=== PATIENT | female | born 1985 | race Caucasian/White ===

== ENCOUNTER 2017-05-27 18:33 | Inpatient (IN) | payer BC, OTHER ==
[~2017-05-27] VITALS: Ht 157.5 cm; Wt 47.2 kg
[2017-05-27] MEDS ORDERED: ONDANSETRON ODT 4 MG TAB.RAPDIS SL PRN (21:00)
[2017-05-27] MEDS ORDERED: DICYCLOMINE HCL 20 MG TABLET PO PRN (21:00)
[2017-05-27] MEDS ORDERED: MAG HYDROX/AL HYDROX/SIMETH 30 ML LIQUID UDC PO PRN (21:00)
[2017-05-27] MEDS ORDERED: ONDANSETRON 4 MG/2 ML VIAL IM PRN (21:00)
[2017-05-27] MEDS ORDERED: MIRALAX 17 GM POWD.PACK PO PRN (21:00)
[2017-05-27] MEDS ORDERED: CLONIDINE HCL 0.1 MG TABLET PO PRN (21:00)
[2017-05-27] MEDS ORDERED: LOPERAMIDE HCL 2 MG CAPSULE PO PRN ×2 (21:00)
[2017-05-27] MEDS ORDERED: LORAZEPAM 1 MG TABLET PO PRN (21:00)
[2017-05-27] MEDS ORDERED: MAGNESIUM HYDROXIDE 30 ML LIQUID UDC PO PRN (21:00)
[2017-05-27] MEDS ORDERED: LORAZEPAM 2 MG/1 ML VIAL IM PRN (21:00)
[2017-05-27] MEDS ORDERED: THIAMINE HCL 200 MG/2 ML VIAL IM ONE (21:00)
[2017-05-27 21:50] VITALS: BP 116/81
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
[2017-05-27 22:15] LABS: *URINE HCG, QUAL NEGATIVE
[2017-05-27 22:19] LABS: BASOPHILS # (AUTO) 0.1 K/uL (0.0-8.0); BASOPHILS % (AUTO) 1.3 % (0.0-2.0); EOSINOPHILS # (AUTO) 0.1 K/uL (0.0-0.7); EOSINOPHILS % (AUTO) 0.9 % (0.0-7.0); HEMATOCRIT 39.9 % (36.7-47.1); HEMOGLOBIN 13.7 g/dL (12.5-16.3); LYMPHOCYTES % (AUTO) 35.5 % (20.5-51.5); MEAN CORPUSCULAR HEMOGLOBIN 32.9 uug (23.8-33.4); MEAN CORPUSCULAR HGB CONC 34 g/dL (32.5-36.3); MEAN CORPUSCULAR VOLUME 95.4 fL (73.0-96.2); MONOCYTES # (AUTO) 0.4 K/uL (2.0-10.0); MONOCYTES % (AUTO) 6.7 % (0.0-11.0); NEUTROPHILS # (AUTO) 3.2 K/uL (1.8-8.9); NEUTROPHILS % (AUTO) 55.6 % (38.5-71.5); PLATELET COUNT (AUTO) 162 K/uL (152-348); RED BLOOD CELL COUNT(AUTO) 4.18 MIL/uL (4.06-5.63); WHITE BLOOD COUNT (AUTO) 5.7 K/uL (3.6-10.2)
--- NOTE | 2017-05-27 22:22 | NUR ---
Admission Note Pt is 31 y/o female being admitted for medically supervised withdrawal from ETOH (Vodka/White Wine). The pt is intoxicated, noted to be anxious but cooperative , flight of ideas, able to be refocused with multiple attempts, CIWA noted to be 9. Pt states substance use as: 1. Vodka: first start approx 4 years ago but recently relapsing for 1 week, using 375 ml/day, last drink reported 1pm on the day of admission 2. White Wine: first started approx 4 year but recently relapsing for 1 week, drinking 2-3 5oz glasses/day when Vodka not available during the last week. 3. Tobacco: Unknown quantity/dependence Past attempts at sobriety include a 1 day admit into [facility] in [place], Mar 2017, with 1.5 yrs sobriety before that, and almost 2 months after, relapsing only for the past week. 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 She denies any symptoms regarding withdrawing from ETOH, but states she almost went into [facility] before and "how scared she is to do that". Allergies listed as "life threatening" requiring epi-pen and hospitalization include "raw tomatoes, pecans and walnuts" which lead to anaphylactic shock. Codeine causes nausea and vomiting. Pt weighed in at 104 lbs, height 64", VS's 100/60, P 110, R 16, SaO2 100% on RA. CIWA 9 and Pt medicated with Ativan 1mg PO, Toradol 30mg IM, 40 meq KCL PO. Assessment done, and orientation to unit completed with refreshments retrieved from kitchen. Dr's listed include a Dr Horn, who seems to have seen her in , and prescribed her Neurontin for anxiety. A Dr Waggoner who was seen in 2016 for endometriosis and IVF, Dr Jose Gomez who was seen in 2014 for polycystic ovarian cyst, and Dr Chang who was seen in 2014 for Spina Bifada. Home medications noted as Neurontin 300mg for anxiety and Seroquel 50mg for sleep. Will monitor PRN's and one time doses, reassessing detox q4hrs and as needed.
[2017-05-27 22:27] LABS: *AMPHETAMINE, URINE NEGATIVE (NEGATIVE); *BARBITURATE, URINE NEGATIVE (NEGATIVE); *CANNABINOID, URINE NEGATIVE (NEGATIVE); *COCCAINE, URINE NEGATIVE (NEGATIVE); *OPIATE, URINE NEGATIVE (NEGATIVE); *PHENCYCLIDINE SCREEN,URINE NEGATIVE (NEGATIVE)
[2017-05-27 22:37] LABS: ALANINE AMINOTRANSFERASE 60 U/L (16-63); ALKALINE PHOSPHATASE 183 U/L (50-136); AMYLASE 73 U/L (25-115); ASPARTATE AMINOTRANSFERASE 203 U/L (15-37); BILIRUBIN,TOTAL 0.6 mg/dL (0.2-1.0); CARBON DIOXIDE 29 mmol/L (21-32); CHLORIDE 101 mmol/L (98-107); CREATININE 0.7 mg/dL (0.6-1.3); GLUCOSE 96 mg/dL (74-106); MAGNESIUM 1.9 mg/dL (1.8-2.4); POTASSIUM 3.4 mmol/L (3.5-5.1); TOTAL PROTEIN, SERUM 8.4 g/dL (6.4-8.2); UREA NITROGEN, BLOOD 8 mg/dL (7-18)
[2017-05-27 22:39] LABS: ETHANOL 320 MG/DL (0-0)
[2017-05-27] MEDS ORDERED: POTASSIUM CHLORIDE 20 MEQ TAB.PRT.SR PO ONE (23:00)
[2017-05-27] MEDS: LORAZEPAM 1 MG TABLET PO PRN (23:05)
--- NOTE | 2017-05-27 23:05 | NUR ---
PRN/One Time Dosees Ativan 1mg, PO for CIWA 9 given for anxiety described by pt as 6/10 and ETOH withdrawal, will reasses in 1 hr.
[2017-05-27 23:35] VITALS: BP 109/72
[2017-05-28] VITALS (7 sets, daily range): BP systolic 92–109; BP diastolic 54–77
--- NOTE | 2017-05-28 00:05 | NUR ---
PRN Reassessment Pt reports decreased anxiety, describes anxiety as 3/10.
[2017-05-28] MEDS ORDERED: KETOROLAC TROMETHAMINE 30 MG INJ IM ONE (00:30)
--- NOTE | 2017-05-28 00:37 | NUR ---
PRN/One Time Dosees Toradol 30mg IM given R Deltoid for R lower leg pain, described as" burning, throbbing, stabbing, shooting, sharp", pain 10/21
[2017-05-28] MEDS ORDERED: GABA-534 PO ×3 (00:38→14:28)
[2017-05-28] MEDS ORDERED: QUET25TA PO (00:38)
[2017-05-28] MEDS ORDERED: EPIN0.3A3 IM (01:32)
--- NOTE | 2017-05-28 01:37 | NUR ---
One Time Dose Reassessment Pt sleeping but awakens to voice. Pt reports Toradol "did no good at all".
--- NOTE | 2017-05-28 03:50 | NUR ---
PRN Medication Administration Patient is noted awake and verbalizing increased anxiety, noted to be restless, agitated, face noted to be flushed, and tremulous. CIWA noted to be 15. PRN Ativan 2mg administered. Will continue to monitor.
--- NOTE | 2017-05-28 04:40 | NUR ---
PRN Medication Reassessment patient is noted awake and is able to verbalize PRN Ativan was effective in minimizing withdrawal symptoms. Patient still noted to to be flushed. Patient states "My anxiety level is better. The medication really helped." encouraged patient to drink fluids as tolerated. Patient verbalized understanding. PRN Ativan 2mg noted to be effective. CIWA score noted to be 9. Will continue to monitor.
[2017-05-28] MEDS: IBUPROFEN 400 MG TABLET PO PRN ×3 (05:15→22:02)
--- NOTE | 2017-05-28 05:15 | NUR ---
PRN PAIN MED Pt found sitting up in bed holding, guarding R lower leg, tearful, flushed, withdrawn, reports R lower leg pain as 8/10, described as "burning, sharp, shooting" and says "It feels like my leg is on fire". plastics plater called to room to assess pt. Pt says the 0037 IM dose of Toradol effective "for a little while, It allowed me to get some sleep". Pt agrees to try Motrin 400mg PO. Medication administered, will continue to monitor and reassess
--- NOTE | 2017-05-28 06:15 | NUR ---
PRN Med reassessment 1 hour Motrin 400mg reassessment. Pt found sleeping on R side, no s/s's restlessness, no facial grimacing. RR 16, non labored and even. Med effective
--- NOTE | 2017-05-28 07:28 | NUR ---
End of Shift 31 y/o female new admit for ETOH withdrawal (Vodka and white wine). Pt noted to be intoxicated on arrival, with c/o R lower leg pain, anxiety, and ETOH intake of 375 ml/day x 1 week. Admitted to unit at 2222, medicated with 1 mg Ativan PO (one time dose), KCL 40 meq PO (replacement for K 3.4), Toradol 30mg IM(one time dose) for R lower leg pain 8/10, Ativan 2 mg PO at 0345 for CIWA 15, Motrin 400 mg PO at 0515 for R lower leg pain 8/10. At present pt sleeping, respirations 16. Pt encouraged to hydrate as tolerated. Intake of 1355, 2 voids, last BM 05/17/17. Will monitor and promptly treat all needs, endorse to continue plan of care as ordered.
--- NOTE | 2017-05-28 07:30 | NUR ---
START OF SHIFT Pt is a 31 yr old female, AA&Ox x4. Pt was admitted on 05/27/17 fro ETOH withdrawal and is on Ativan PRN for s/s of w/d. Received report from night shfit nurse. Pt received Ativan 2mg one time order and Toradol 30mg IM one time order during the night. Medication was mildly effective. Pt received Ativan 2mg PRN and Motrin 400mg PO PRN in the morning. Medication was effective. Pt slept for 2 hrs. intermittently. Pt is currently c/o right leg pain 09/20. Pt states of having anxiety but is able to cope with anxiety level. Pt states, "I just want to sleep". Skin is intact, warm and moist to touch. Fine tremors are felt on bilateral hands. Pt is on fall and seizure precautions. Pt was encouraged increase fluid intake. Call light is within reach. Will continue to monitor.
--- NOTE | 2017-05-28 08:45 | NUR ---
REFUSED TB Pt refused TB. Pt denies any episodes of cough or congestion. Pt states she has a false positive skin test and just recently had a chest x-ray that was cleared. Will continue to f/u with . Addendum: 05/28/17 at 1059 by TYRONE MUÑOZ LVN made aware
[2017-05-28] MEDS ORDERED: TUBERCULIN,PURIF.PROT.DERIV. 5 TU/0.1 ML TEST ID ONE ×2 (09:00)
[2017-05-28] MEDS: ACETAMINOPHEN 325 MG TABLET PO PRN ×2 (09:09→18:50)
--- NOTE | 2017-05-28 09:09 | NUR ---
PRN GIVEN Pt c/o right leg pain 09/20. Tylenol 650mg PO PRN was given as ordered. Encouraged increase fluid intake. Will continue to monitor.
[2017-05-28] MEDS: THIAMINE HCL 100 MG TABLET PO SCH (09:10)
[2017-05-28] MEDS: FOLIC ACID 1 MG TABLET PO SCH (09:10)
[2017-05-28] MEDS: MULTIVITAMINS,THERAPEUTIC TABLET PO SCH (09:10)
[2017-05-28] MEDS: LORAZEPAM 1 MG TABLET PO PRN (09:31)
--- NOTE | 2017-05-28 09:31 | NUR ---
PRN GIVEN Pt c/o increase anxiety. Fine tremors were seen on bilateral hands. Pt states of having pins and needle sensation on RLE. CIWA score was 10. Ativan 1mg PO PRN was given as ordered. Will continue to monitor.
--- NOTE | 2017-05-28 10:31 | NUR ---
PRN RE-ASSESSMENT Ativan 1mg PO PRN was effective, CIWA score went from 10 to 6 after medication administration. Tylenol PRN was mildly effective. Pt continue to c/o right leg pain 08/21. MD is made aware. Will continue to monitor.
[2017-05-28] MEDS: KETOROLAC TROMETHAMINE 30 MG INJ IM PRN (12:17)
--- NOTE | 2017-05-28 12:18 | NUR ---
PRN GIVEN Pt c/o sever pain on right lower leg 10/10. Facial grimacing and moaning is noted. Toradol 30mg IM PRN was given as ordered. Encouraged increase fluid intake. Will continue to monitor.
--- NOTE | 2017-05-28 13:18 | NUR ---
PRN RE-ASSESSMENT Toradol PRN was effective. Pt states pain level subsided to 5/10. Pt was encouraged increase fluid intake. Will continue to monitor.
[2017-05-28] MEDS: GABAPENTIN 300 MG CAPSULE PO SCH ×2 (14:23→22:02)
[2017-05-28] MEDS ORDERED: DIPH50CA37 PO (14:28)
[2017-05-28] MEDS ORDERED: IBUP-1953 PO (14:28)
[2017-05-28] MEDS ORDERED: HYDR-3026 PO (14:28)
[2017-05-28] MEDS ORDERED: LORAZEPAM 1 MG TABLET PO SCH ×2 (15:00→21:00)
[2017-05-28] MEDS ORDERED: GABAPENTIN 300 MG CAPSULE PO SCH (15:00)
--- NOTE | 2017-05-28 17:00 | NUR ---
PRN GIVEN pt c/o severe pain on right leg 10/10. Facial grimacing is observed. Motrin 400mg PO PRN was given as ordered. Encouraged increase fluid intake. Will continue to monitor.
--- NOTE | 2017-05-28 18:00 | NUR ---
PRN RE-ASSESSMENT Motrin PRN was mildly effective. Pt continues to c/o severe pain 09/20. Pt was encouraged increase fluid intake. Will continue to monitor.
--- NOTE | 2017-05-28 19:16 | NUR ---
END OF SHIFT Pt is a 31 yr old female, AA&Ox4. Pt was admitted on 05/27/17 for ETOH withdrawal and is on a modified 2 day Ativan taper as ordered. Medication amaris well. Pt c/o anxiety and severe leg pain throughout the day. Pt received Ativan 1mg PO PRN at 0931 and Tylenol 650mg PO PRN at 0909. Pt also received Toradol 30mg IM PRN at 1217 and Motrin 400mg PO at 1659 and Tylenol 650mg PO PRN at 1851. Pt continues to c/o right leg pain, stating its burning and throbbing. Facial grimacing is observed. Endorsed to mold shifter nurse to continue to monitor. Last CIWA score was 9 at 1600. Pt was encouraged increase fluid intake. Safety precautions observed. Call light is within reach.
--- NOTE | 2017-05-28 19:30 | NUR ---
START OF SHIFT NOTE : Patient is a 31-year-old female admitted on 05/27/17 for medically supervised withdrawal from ETOH. Pt. placed on 2 day Ativan taper. PRN MOTRIN, TYLENOL, TORADOL given during day shift. Pt. is resting in room, watching TV, tearful, restless time to time, last CIWA=9. She complains of tremor time to time, difficulty falling and staying asleep, increased level of anxiety, flashes time to time, pain in her right leg. Educated patient regarding the importance of compliance to treatment and medication regime, patient verbalized understanding. Encouraged patient to participate in group therapies and verbalize feelings. Safety measures in place : bed on lowest position with side rails x2 up for safety, all light within reach. Will continue to monitor closely and offer help.
--- NOTE | 2017-05-28 21:00 | NUR ---
PRN BENADRYL, MOTRIN Pt. complains of difficulty falling asleep, insomnia, headache and pain in the right leg 09/20. PRN BENADRYL, MOTRIN given as ordered. Safety measures in place : bed on lowest position with side rails x2 up for safety, call light within reach. Will continue to monitor closely and offer help.
--- NOTE | 2017-05-28 22:00 | NUR ---
RE-ASSESSMENT LYUDMILA MICHAEL Pt. is sleeping, RR=16, unlabored and even . Safety measures in place : bed on lowest position with side rails x2 up for safety, call light within reach. Will continue to monitor closely and offer help.
[2017-05-28] MEDS: diphenhydrAMINE 50 MG CAPSULE PO PRN (22:02)
--- NOTE | 2017-05-29 06:33 | NUR ---
END OF SHIFT NOTE : Patient is a 31-year-old female admitted on 05/27/17 for medically supervised withdrawal from ETOH. Pt. placed on 2 day Ativan taper. PRNs given during caustic cresylate shift superintendent : BENADRYL, MOTRIN. CIWA, taken when pt. was awake, last CIWA=8, at 04:00. Intake=1,680 , voided x3, slept=8 hours. Safety measures in place : bed on lowest position with side rails x2 up for safety, all light within reach. Will continue to monitor closely and offer help.
--- NOTE | 2017-05-29 07:51 | NUR ---
Start of Shift Notes: Received endorsement from night nurse. Patient is a 31 year old female admitted for ETOH withdrawal. Placed on a 2-day Ativan taper as ordered. No adverse reactions noted. Patient is seen in her room. Laying in bed with eyes closed. Breathing even and unlabored. No SOB noted. Patient is easily arousable. Goes back to sleep immediately. Room appears unkept with dirty linen on the floor. Will encouraged maintenance of personal hygiene and space. PRN Benadryl and Motrin given during the night. Last CIWA 8. Slept for 8 hours. All needs met and attended. Will continue to monitor closely.
[2017-05-29 08:00] VITALS: BP 98/65
[2017-05-29] MEDS: GABAPENTIN 300 MG CAPSULE PO SCH ×3 (08:39→20:45)
[2017-05-29] MEDS: THIAMINE HCL 100 MG TABLET PO SCH (08:39)
[2017-05-29] MEDS: MULTIVITAMINS,THERAPEUTIC TABLET PO SCH (08:39)
[2017-05-29] MEDS: FOLIC ACID 1 MG TABLET PO SCH (08:39)
[2017-05-29] MEDS: KETOROLAC TROMETHAMINE 30 MG INJ IM PRN ×2 (08:39→17:51)
--- NOTE | 2017-05-29 08:39 | NUR ---
Toradol 30 mg IM given: Patient complained of 8/10 right leg pain related to nerve damage. Non-pharmacological interventions provided but in effective. Medicated patient with Toradol 30 mg IM as ordered. Will monitor for effectiveness.
--- NOTE | 2017-05-29 08:39 | NUR ---
Toradol 30 mg IM given: Patient complained of "12/21" back pain r/t chronic back pain. Non-pharmacological interventions provided but ineffective. Medicated patient with Toradol 30 mg IM as ordered. Will monitor for effectiveness. Addendum: 05/29/17 at 0855 by ZACHARIAH STOVER LVN Error in charting.
[2017-05-29] MEDS ORDERED: LORAZEPAM 1 MG TABLET PO SCH (09:00)
--- NOTE | 2017-05-29 09:09 | NUR ---
Re-assessment: Toradol Patient verbalizes that PRN Toradol was mildly effective in reducing pain. She states that PL is now 4/10 from 10/21.
[2017-05-29] MEDS ORDERED: TRAZODONE 50 MG TABLET PO PRN (10:00)
[2017-05-29 10:08] LABS: HEPATITIS B SURFACE AG Negative (Negative)
[2017-05-29] MEDS: ACETAMINOPHEN 325 MG TABLET PO PRN ×2 (10:27→20:45)
--- NOTE | 2017-05-29 10:27 | NUR ---
Tylenol 650 mg PO given: Patient complains of 5/10 pain to her right leg due to neuropathy. Non-pharmacological interventions provided but ineffective. Medicated patient with Tylenol 650 mg PO as ordered. Will monitor for effectiveness.
--- NOTE | 2017-05-29 10:57 | NUR ---
MD Communication: Patient complains of mild to moderate anxiety. Non-pharmacological interventions provided. Patient requested for her comfort blanket and stuffed toy to alleviate his anxiety. Communicated with administration.
--- NOTE | 2017-05-29 11:27 | NUR ---
Re-assessment: Tylenol Per patient, PRN Tylenol was effective in reducing right leg pain. PL is now 04/23.
[2017-05-29] MEDS ORDERED: HYDROXYZINE PAMOATE 25 MG CAPSULE PO PRN (11:30)
--- NOTE | 2017-05-29 11:54 | NUR ---
New Orders: [place] Obtained orders from for patient to receive Vistaril 25 mg PO Q6 hours PRN for anxiety. Orders noted. Patient education provided.
[2017-05-29 12:00] VITALS: BP 107/65
--- NOTE | 2017-05-29 14:18 | NUR ---
Vistaril 25 mg PO given: Patient verbalizes mild to moderate anxiety due to change in environment. Encouraged patient to verbalize her feelings and concerns. Encouraged to attend group but did not help. Medicated patient with Vistaril 25 mg PO as ordered. Will monitor for effectiveness.
--- NOTE | 2017-05-29 15:18 | NUR ---
Re-assessment: Vistaril Per patient, PRN Vistaril was effective in reducing patient's anxiety. She verbalizes "I'm more at ease now, thank you! But, my anxiety is still there."
[2017-05-29 16:00] VITALS: BP 94/54
--- NOTE | 2017-05-29 16:21 | NUR ---
Re-assessment: Toradol Patient verbalizes that PRN Toradol was effective in reducing right leg pain. PL is now 05/21.
--- NOTE | 2017-05-29 17:51 | NUR ---
Toradol 30 mg IM given: Patient complained of 9/10 right leg pain related to neuropathy. Non-pharmacological interventions provided but ineffective. Medicated patient with Toradol 30 mg IM as ordered. Will monitor for effectiveness.
--- NOTE | 2017-05-29 19:06 | NUR ---
End of Shift Notes: Patient completed her 2-day Ativan taper as ordered. No adverse reactions noted. VS monitored closely. No significant abnormalities noted. Withdrawal symptoms were closely monitored. Initial CIWA 14, patient presented with anxiety, agitation, gross tremors, and peripheral numbness/tingling/pain. Medicated patient with Toradol 30 mg IM as ordered at 0839 for right leg pain related to neuropathy with help after 30 minutes. At 1027, patient was given Tylenol 650 mg PO for right leg pain with help after 1 hour. New order for Vistaril 25 mg PO q 6 hours PRN for anxiety. Vistaril 25 mg PO given at 1404 with help after 1 hour. Patient was again medicated with Toradol 30 mg IM at 1751 for right leg pain with help after 30 minutes. Last CIWA 10. Requires encouragement to attend group and activities. Tends to self isolate. Prefers to stay in her room and in bed watching TV. Appears worried and sad. Encouraged to verbalize her feelings and concerns. All needs met and attended. Will continue to monitor closely.
--- NOTE | 2017-05-29 19:30 | NUR ---
START OF SHIFT Pt is a 31 y/o female admitted on 05/27/17 for ETOH withdrawal. Pt finished a 2 day Ativan taper and is scheduled to be d/c tomorrow. Per day shift nurse, last CIWA 10 and PRN Toradol x 2, Tylenol and Vistaril administered. Upon assessment pt presents with anxiety, pain in right leg and lower back 9/10, unkempt room, difficulty falling asleep, tachycardia, numbness and tingling in right leg, restlessness, chills and is withdrawn. Medications due. Safety measures in place. Call light within reach. Will continue to monitor.
[2017-05-29 20:00] VITALS: BP 115/81
[2017-05-29] MEDS: IBUPROFEN 400 MG TABLET PO PRN (20:45)
[2017-05-29] MEDS: diphenhydrAMINE 50 MG CAPSULE PO PRN (20:45)
--- NOTE | 2017-05-29 20:45 | NUR ---
PRN TYLENOL, BENADRYL AND MOTRIN ADMINISTRATION Pt reports pain 9/10 in right leg and lower back. Pt appears uncomfortable and presents with facial grimacing. Pt requests sleep aid for difficulty falling asleep. Safety measures in place. Call light within reach. Will continue to monitor.
--- NOTE | 2017-05-29 21:45 | NUR ---
PRN TYLENOL, BENADRYL AND MOTRIN REASSESSMENT Pt reports pain in lower back is tolerable, but states "The pain in right leg only lowered to maybe a 8/10." Pt remains awake at this time. Pt requesting further sleep aid. Safety measures in place. Call light within reach. Will continue to monitor.
--- NOTE | 2017-05-29 22:20 | NUR ---
PRN TRAZODONE ADMINISTRATION Pt presents with restlessness and is still awake, pt requests sleep aid. Safety measures in place. Call light within reach. Will continue to monitor.
--- NOTE | 2017-05-29 23:20 | NUR ---
PRN TRAZODONE REASSESSMENT Pt laying in bed with eyes closed, medication noted effective. Safety measures in place. Call light within reach. Will continue to monitor.
--- NOTE | 2017-05-30 | NUR ---
CIWA DEFERRED AND VITALS REFUSED Pt laying in bed with eyes closed, CIWA deferred, to be assessed when pt is awake per orders. Vitals refused. Respirations even and unlabored. Safety measures in place. Call light within reach. Will continue to monitor.
[2017-05-30] MEDS: KETOROLAC TROMETHAMINE 30 MG INJ IM PRN (03:00)
--- NOTE | 2017-05-30 03:00 | NUR ---
PRN TORADOL INJ ADMINISTRATION Pt woke up from being in pain, reports right leg pain 8/10. Pt appears uncomfortable, is guarding and presents with facial grimacing. Safety measures in place. Call light within reach. Will continue to monitor.
--- NOTE | 2017-05-30 03:30 | NUR ---
PRN TORADOL REASSESSMENT Pt laying in bed with eyes closed, medication noted effective. Safety measures in place. Call light within reach. Will continue to monitor.
--- NOTE | 2017-05-30 07:26 | NUR ---
END OF SHIFT Pt is a 31 y/o female admitted on 05/27/17 for ETOH withdrawal. Pt finished a 2 day Ativan taper and is scheduled to be d/c today. Pt presented with anxiety, pain in right leg and lower back 11/21, unkempt room, difficulty falling and staying asleep, tachycardia, numbness and tingling in right leg, restlessness, chills and is withdrawn. Scheduled medications and PRN Tylenol, Benadryl, Motrin, Trazodone and Toradol administered, effective in S/S of withdrawal as verbalized by pt. Last CIWA 7. Pt slept 7 hours. Intake 1355 ml, void x 3, stool x 0. Safety measures in place. Call light within reach. Pts needs have been met. Endorsed to day shift nurse.
--- NOTE | 2017-05-30 07:45 | NUR ---
START OF SHIFT PT IS A 31 Y/O F ADMITTED FOR ETOH W/D. PT APPEARS DISHEVELED, WITH UNKEMPT HAIR AND MESSY ROOM. PT PRESENTS ANXIETY AND RESTLESSNESS. PT COMPLETED 2 DAY ATIVAN TAPER AND IS MEDICALLY CLEARED TO BE DISCHARGED TODAY. PT REPORTS ALTHOUGH HAVING ANXIETY, SHE IS READY TO BE DISCHARGED. SIDE RAILS UPX2, BED IN LOW POSITION, CALL LIGHT WITHIN REACH. SAFETY MEASURES IN PLACE. WILL CONTINUE TO MONITOR.
[2017-05-30 08:00] VITALS: BP 96/61
[2017-05-30] MEDS: IBUPROFEN 400 MG TABLET PO PRN (08:32)
[2017-05-30] MEDS: THIAMINE HCL 100 MG TABLET PO SCH (08:32)
[2017-05-30] MEDS: MULTIVITAMINS,THERAPEUTIC TABLET PO SCH (08:32)
[2017-05-30] MEDS: FOLIC ACID 1 MG TABLET PO SCH (08:32)
[2017-05-30] MEDS: GABAPENTIN 300 MG CAPSULE PO SCH (08:32)
--- NOTE | 2017-05-30 09:45 | NUR ---
DISCHARGE NOTE PT IS IN STABLE CONDITION, VVS, A/0X4 RESPIRATIONS EVEN AND UNLABORED. D/C INSTRUCTIONS GIVEN AND PT VERBALIZED UNDERSTANDING. PT SIGNED D/C PAPERWORK, COPIED AND DATED. PT LAST CIWA 5 @0800. PT LEFT THE BUILDING WITH ALL BELONGINGS, PRESCRIPTIONS, HOME MEDS AT 0945 AND HAS BEEN PICKED UP BY "[facility]." Addendum: 05/30/17 at 1326 by LIU HERNDON RN PT IS DISCHARGED WITH A CANE THAT WAS GIVEN BY THE PHYSICAL THERAPIST.
== END 2017-05-30 09:45 | DRG 895 ==
LOC: SRC 20:36 → EDSEX 20:36
PROVIDERS: ADMIT Internal Medicine; ATTEND Internal Medicine
PROC: HZ2ZZZZ Detoxification Services for Substance Abuse Treatment (ICD-10-PCS; principal; 2017-05-27)
PROC: HZ41ZZZ Group Counseling for Substance Abuse Treatment, Behavioral (ICD-10-PCS; 2017-05-28)
DX: F10.239 Alcohol dependence with withdrawal, unspecified (principal); K70.10 Alcoholic hepatitis without ascites; G62.9 Polyneuropathy, unspecified; E28.2 Polycystic ovarian syndrome; Y90.9 Presence of alcohol in blood, level not specified; N80.9 Endometriosis, unspecified; F17.210 Nicotine dependence, cigarettes, uncomplicated; Z81.1 Family history of alcohol abuse and dependence; Z88.6 Allergy status to analgesic agent; Z91.018 Allergy to other foods; G89.29 Other chronic pain; Q05.9 Spina bifida, unspecified; F41.9 Anxiety disorder, unspecified; E87.6 Hypokalemia; G47.00 Insomnia, unspecified; T14.90XS Injury, unspecified, sequela; X58.XXXS Exposure to other specified factors, sequela
CPT/HCPCS: 36415; 70030-TC; 80307; 83735; 84703; 85025; 86580; 86592; 86705; 86803; 87340; 87806; A4663; G0480; J1885; J3411; Q0163